=== PATIENT | female | born 1965 | race Caucasian/White ===

== ENCOUNTER 2019-11-11 01:40 | Inpatient (IN) ==
[2019-11-11] MEDS ORDERED: ONDANSETRON 4 MG/2 ML VIAL IV PRN (05:47)
[2019-11-11] MEDS ORDERED: DEXTROSE 50% 25 GM/50 ML VIAL IV PRN ×2 (05:47→13:23)
[2019-11-11] MEDS ORDERED: GLUCAGON 1 MG VIAL IM PRN ×2 (05:47→13:23)
[2019-11-11] MEDS ORDERED: SODIUM CHLORIDE 0.9% 1,000 ML IV SCH (07:00)
[2019-11-11 07:27] LABS: Basophils % 0.4 % (0.0-0.8); Eosinophils # 0.6 10*3/uL (0.0-0.87); Eosinophils % 5.9 % (0.00-10.9); Hematocrit 35.9 VOL% (35.7-47.0); Hemoglobin 11.4 GM/DL (12.0-16.0); Immature Granulocytes % 0.7 %; Immature Granulocytes Absolute 0.07 #; Lymphocytes # 1.6 10*3/uL (1.4-4.0); Mean Corpuscular HGB Conc 31.8 GM/DL (32-36); Mean Corpuscular Volume 83.5 FL (87-102); Mean Platelet Volume 12.9 FL (9.6-12.0); Monocytes % 10.9 % (1.7-12.7); Neutrophils % 66.1 % (38.7-73.9); Platelet Count 151 T/CUMM (130-400); Red Cell Distribution Width 14.7 % (9.3-17.3); White Blood Count 9.8 T/CUMM (4-12)
[2019-11-11 07:48] LABS: Albumin 2.6 G/DL (3.4-5.0); Bilirubin,Total 1.1 MG/DL (0.2-1.0); Calcium 8.6 MG/DL (8.5-10.1); Osmolality,Calculated 270.1 MOS/KG (273-304); Total Protein 7.1 G/DL (6.4-8.3)
[2019-11-11] MEDS: INSULIN REGULAR 100 UNIT/ML SUBCUT SCH ×4 (08:01→20:51)
[2019-11-11] MEDS: OSELTAMIVIR 75 MG CAPSULE PO SCH ×2 (08:33→20:51)
[2019-11-11] MEDS: VANCOMYCIN INJ 2,000 MG in SODIUM CHLORIDE 0.9% 500 ML IV SCH ×2 (08:33→20:51)
[2019-11-11] MEDS: MORPHINE 4 MG/1 ML VIAL IV PRN ×2 (12:20→20:51)
[2019-11-11] MEDS: SODIUM CHLOR 0.9% KCL 20 MEQ 20 MEQ/1,000 ML BAG IV SCH (13:02)
[2019-11-12] MEDS: SODIUM CHLOR 0.9% KCL 20 MEQ 20 MEQ/1,000 ML BAG IV SCH ×2 (01:19→13:49)
[2019-11-12 06:43] LABS: Basophils % 0.7 % (0.0-0.8); Eosinophils # 0.5 10*3/uL (0.0-0.87); Eosinophils % 8.9 % (0.00-10.9); Hematocrit 30.9 VOL% (35.7-47.0); Hemoglobin 9.8 GM/DL (12.0-16.0); Immature Granulocytes % 0.7 %; Immature Granulocytes Absolute 0.04 #; Lymphocytes # 1.2 10*3/uL (1.4-4.0); Lymphocytes % 20.1 % (21.3-54.2); Mean Corpuscular HGB Conc 31.7 GM/DL (32-36); Mean Corpuscular Volume 83.5 FL (87-102); Mean Platelet Volume 11.9 FL (9.6-12.0); Monocytes % 13.9 % (1.7-12.7); Neutrophils % 55.7 % (38.7-73.9); Platelet Count 142 T/CUMM (130-400); Red Cell Distribution Width 14.6 % (9.3-17.3); White Blood Count 5.8 T/CUMM (4-12)
[2019-11-12 07:34] LABS: Calcium 8.2 MG/DL (8.5-10.1); Osmolality,Calculated 273.5 MOS/KG (273-304)
[2019-11-12] MEDS: INSULIN REGULAR 100 UNIT/ML SUBCUT SCH ×4 (07:41→20:49)
[2019-11-12] MEDS: VANCOMYCIN INJ 2,000 MG in SODIUM CHLORIDE 0.9% 500 ML IV SCH ×2 (07:42→20:50)
[2019-11-12] MEDS: MULTIVITAMIN (CENTRUM) TABLET PO SCH (08:03)
[2019-11-12] MEDS: OSELTAMIVIR 75 MG CAPSULE PO SCH ×2 (08:03→20:50)
[2019-11-12] MEDS: POTASSIUM CHLORIDE RIDER 10 MEQ in PREMIX 1 EACH IV SCH ×2 (10:30→16:57)
[2019-11-12] MEDS ORDERED: PIPERACILLIN/TAZOBACTAM 3,375 MG in SODIUM CHLORIDE 0.9% 100 ML IV SCH (11:30)
[2019-11-12] MEDS ORDERED: POLYMYXIN B 500,000 UNIT VIAL ONE (11:47)
[2019-11-12] MEDS ORDERED: BACITRACIN 50,000 UNIT VIAL ONE (11:47)
[2019-11-12] MEDS ORDERED: NEOMYCIN/POLYMYXIN/BACITRACIN OINT 28.4 GM TUBE TOP ONE (11:47)
[2019-11-12] MEDS ORDERED: BUPIVACAINE MPF 0.25% 30 ML VIAL ONE (11:47)
[2019-11-12] MEDS ORDERED: POTASSIUM CHLORIDE RIDER 100 ML IV ONE (12:28)
[2019-11-12] MEDS ORDERED: LACTATED RINGERS 1,000 ML IV SCH (12:30)
[2019-11-12] MEDS ORDERED: LIDOCAINE 1%/EPI INJ 20 ML VIAL ONE (12:54)
[2019-11-12] MEDS ORDERED: PROMETHAZINE 25 MG/1 ML VIAL ONE (13:22)
[2019-11-12] MEDS ORDERED: LIDOCAINE 2% 5 ML VIAL ONE (13:35)
[2019-11-12] MEDS ORDERED: SEVOFLURANE 1 UNIT/15 MINUTE INH ONE (13:35)
[2019-11-12] MEDS ORDERED: propofoL 200 MG/20 ML VIAL IV ONE (13:35)
[2019-11-12] MEDS ORDERED: MIDAZOLAM 2 MG/2 ML VIAL ONE (13:36)
[2019-11-12] MEDS ORDERED: ONDANSETRON 4 MG/2 ML VIAL ONE (13:36)
[2019-11-12] MEDS ORDERED: fentaNYL 100 MCG/2 ML VIAL ONE (13:36)
[2019-11-12] MEDS ORDERED: GLYCOPYRROLATE 0.4 MG/2 ML VIAL ONE (13:36)
[2019-11-12] MEDS ORDERED: HYDROCORTISONE 100 MG VIAL ONE (13:36)
[2019-11-12] MEDS ORDERED: SUCCINYLCHOLINE 200 MG/10 ML VIAL ONE (13:37)
[2019-11-12] MEDS ORDERED: ROCURONIUM 100 MG/10 ML VIAL IV ONE (13:37)
[2019-11-12] MEDS ORDERED: NEOSTIGMINE 10 MG/10 ML VIAL ONE (13:37)
[2019-11-12] MEDS ORDERED: HYDROmorphone 2 MG/1 ML VIAL ONE (13:53)
[2019-11-12] MEDS: HYDROmorphone 2 MG/1 ML VIAL IV PRN ×2 (13:55→14:05)
[2019-11-12] MEDS: MORPHINE 4 MG/1 ML VIAL IV PRN ×2 (17:22→21:53)
[2019-11-12] MEDS ORDERED: MELATONIN 3 MG TABLET PO PRN (17:55)
[2019-11-12] MEDS: PREGABALIN 75 MG CAPSULE PO SCH (20:49)
[2019-11-12] MEDS: FLUoxetine 20 MG CAPSULE PO SCH (20:49)
[2019-11-12] MEDS: ROSUVASTATIN 20 MG TABLET PO SCH (20:50)
[2019-11-12] MEDS: PRAMIPEXOLE 0.25 MG TABLET PO SCH (20:59)
[2019-11-12] MEDS: tiZANidine 4 MG TABLET PO PRN (20:59)
[2019-11-13] MEDS: PIPERACILLIN/TAZOBACTAM 3,375 MG in SODIUM CHLORIDE 0.9% 100 ML IV SCH ×4 (00:47→23:53)
[2019-11-13] MEDS: MORPHINE 4 MG/1 ML VIAL IV PRN ×3 (07:46→21:15)
[2019-11-13 07:51] LABS: Basophils % 0.4 % (0.0-0.8); Eosinophils # 0.2 10*3/uL (0.0-0.87); Eosinophils % 3.5 % (0.00-10.9); Hematocrit 31.9 VOL% (35.7-47.0); Immature Granulocytes % 0.8 %; Immature Granulocytes Absolute 0.04 #; Lymphocytes # 1.3 10*3/uL (1.4-4.0); Lymphocytes % 27.2 % (21.3-54.2); Mean Corpuscular HGB Conc 31.3 GM/DL (32-36); Mean Corpuscular Volume 83.9 FL (87-102); Mean Platelet Volume 11.5 FL (9.6-12.0); Monocytes % 11.9 % (1.7-12.7); Neutrophils % 56.2 % (38.7-73.9); Platelet Count 170 T/CUMM (130-400); Red Cell Distribution Width 14.8 % (9.3-17.3); White Blood Count 4.9 T/CUMM (4-12)
[2019-11-13 08:12] LABS: Calcium 8.3 MG/DL (8.5-10.1); Ferritin 124.1 ng/ml (8-252); Osmolality,Calculated 275.4 MOS/KG (273-304)
[2019-11-13] MEDS: INSULIN REGULAR 100 UNIT/ML SUBCUT SCH ×4 (08:26→21:16)
[2019-11-13] MEDS: MULTIVITAMIN (CENTRUM) TABLET PO SCH (08:29)
[2019-11-13] MEDS: OSELTAMIVIR 75 MG CAPSULE PO SCH (08:30)
[2019-11-13] MEDS: VANCOMYCIN INJ 2,000 MG in SODIUM CHLORIDE 0.9% 500 ML IV SCH ×2 (08:31→21:16)
[2019-11-13 09:06] LABS: Folate 13.1 NG/ML (5.4-24.0)
[2019-11-13] MEDS: FERROUS SULFATE 325 MG TABLET PO SCH (09:47)
[2019-11-13] MEDS: LIDOCAINE 2% VISCOUS 100 ML BOTTLE SWISH/SPIT PRN ×2 (12:28→18:38)
[2019-11-13] MEDS: POTASSIUM CHLORIDE 20 MEQ TABLET PO PRN ×3 (12:28→18:34)
[2019-11-13] MEDS: NYSTATIN 500,000 UNIT/5 ML UDCUP SWISH/SWAL SCH ×3 (13:22→21:17)
[2019-11-13] MEDS: SODIUM CHLOR 0.9% KCL 20 MEQ 20 MEQ/1,000 ML BAG IV SCH (15:01)
[2019-11-13] MEDS: PRAMIPEXOLE 0.25 MG TABLET PO SCH (21:16)
[2019-11-13] MEDS: ROSUVASTATIN 20 MG TABLET PO SCH (21:16)
[2019-11-13] MEDS: PREGABALIN 75 MG CAPSULE PO SCH (21:16)
[2019-11-13] MEDS: FLUoxetine 20 MG CAPSULE PO SCH (21:17)
[2019-11-13] MEDS: tiZANidine 4 MG TABLET PO PRN (21:17)
[2019-11-14 05:49] LABS: Basophils % 0.5 % (0.0-0.8); Eosinophils # 0.3 10*3/uL (0.0-0.87); Eosinophils % 4.9 % (0.00-10.9); Hematocrit 31.1 VOL% (35.7-47.0); Hemoglobin 9.9 GM/DL (12.0-16.0); Immature Granulocytes % 0.5 %; Immature Granulocytes Absolute 0.03 #; Lymphocytes # 1.7 10*3/uL (1.4-4.0); Lymphocytes % 30.7 % (21.3-54.2); Mean Corpuscular HGB Conc 31.8 GM/DL (32-36); Mean Corpuscular Volume 85.2 FL (87-102); Mean Platelet Volume 11.1 FL (9.6-12.0); Monocytes % 13.3 % (1.7-12.7); Neutrophils % 50.1 % (38.7-73.9); Platelet Count 162 T/CUMM (130-400); Red Blood Count 3.65 MC/CUMM (3.8-5.5); White Blood Count 5.5 T/CUMM (4-12)
[2019-11-14 06:18] LABS: Calcium 8.4 MG/DL (8.5-10.1)
[2019-11-14] MEDS ORDERED: CIPROFLOXACIN 500 MG TABLET PO SCH (09:00)
[2019-11-14] MEDS ORDERED: LINEZOLID 600 MG TABLET PO SCH (09:00)
[2019-11-14] MEDS: FERROUS SULFATE 325 MG TABLET PO SCH (09:39)
[2019-11-14] MEDS: INSULIN REGULAR 100 UNIT/ML SUBCUT SCH ×2 (09:39→11:32)
[2019-11-14] MEDS: NYSTATIN 500,000 UNIT/5 ML UDCUP SWISH/SWAL SCH ×2 (09:40→14:42)
[2019-11-14] MEDS: MULTIVITAMIN (CENTRUM) TABLET PO SCH (09:40)
[2019-11-14] MEDS: MORPHINE 4 MG/1 ML VIAL IV PRN (11:16)
[2019-11-14 13:07] VITALS: BP 149/68
[2019-11-14] MEDS ORDERED: NYSTATIN CREAM 15 GM TUBE TOP SCH (15:00)
== END 2019-11-14 14:18 | disposition home health service (06) | DRG 29 ==
LOC: SUATTDRO 05:40 → N.TELES 05:40 → N.TELEN 08:46
PROVIDERS: ADMIT Internal Medicine; ATTEND Internal Medicine